=== PATIENT | female | born 1985 | race Caucasian/White ===

== ENCOUNTER → 2017-09-18 | Outpatient (CLI) | payer OTHER ==
[2017-09-18 17:13] LABS: ALBUMIN 3.8 GM/DL (3.2-5.2); ALBUMIN/GLOBULIN RATIO 1.09 (1.00-1.93); ALKALINE PHOSPHATASE 94 U/L (45-117); ALT/SGPT 16 U/L (12-78); AST/SGOT 10 U/L (7-37); BILIRUBIN,DIRECT 0.1 MG/DL (0.0-0.2); BILIRUBIN,TOTAL 0.4 MG/DL (0.2-1.0); CHOLESTEROL LEVEL 130 MG/DL (<200); CHOLESTEROL RISK RATIO 3.023 (<5); HDL CHOLESTEROL 43 MG/DL (>40); LDL CHOLESTEROL 74.4 MG/DL (<100); NON-HDL-C 87 MG/DL; TOTAL PROTEIN 7.3 GM/DL (6.4-8.2); TRIGLYCERIDES LEVEL 63 MG/DL (<150)
== END ==
LOC: M LRY 11:41
DX: E78.5 Hyperlipidemia, unspecified (principal)

== ENCOUNTER → 2020-04-23 | Outpatient (CLI) | payer OTHER ==
--- NOTE | 2020-04-23 10:13 | REPVR ---
PROCEDURE INFORMATION: Exam: MR Lumbar Spine Without Contrast. Exam date and time: 04/23/2020 9:39 AM Age: 34 years old Clinical indication: Low back pain TECHNIQUE: Imaging protocol: Multiplanar magnetic resonance images of the lumbar spine without intravenous contrast. COMPARISON: No relevant prior studies available. FINDINGS: Vertebrae: There is accentuation of the normal lumbar lordosis. There is no acute fracture or listhesis. Spinal cord: Normal signal. No cord compression. L1-L2: No significant disc disease. No significant spinal canal stenosis. No neural foraminal stenosis. L2-L3: No significant disc disease. No significant spinal canal stenosis. No neural foraminal stenosis. L3-L4: There is shallow disc bulging. There is mild facet hypertrophy. There is mild bilateral neural foraminal narrowing. L4-L5: There is shallow disc bulging. There is mild facet hypertrophy. This minimally indents the ventral thecal sac. The spinal canal and neural foramina are patent. L5-S1: There is shallow disc bulging with a prominent right foraminal component. There is mild facet hypertrophy. There is [id number] right neural foraminal narrowing. Disc material comes into close contact with the exiting right L5 nerve root. Soft tissues: Unremarkable. IMPRESSION: Mild degenerative disc disease and spondylosis as described. At L5/S1, disc bulge with prominent right foraminal component comes into close contact with the exiting right L5 nerve root. Correlation with distribution of symptoms is recommended. Electronically signed by: Amina Stewart On 04/23/2020 10:13:54 AM
== END ==
LOC: M PLARAD 08:11
PROVIDERS: ATTEND Physician Assistant
DX: M51.27 Other intervertebral disc displacement, lumbosacral region (principal); M51.86 Other intervertebral disc disorders, lumbar region; M51.87 Other intervertebral disc disorders, lumbosacral region